=== PATIENT | male | born 1980 | race Hispanic/Latino ===

== ENCOUNTER 2023-09-17 19:28 | Emergency (ER) | payer SELFPAY ==
[2023-09-17 19:42] VITALS: BP 119/84
[2023-09-17 20:21] LABS: % Basophils 0.3 % (0-2); % Immature Granulocytes 0.2 % (0-0.5); % Lymphocytes 45.6 % (20.5-51.1); % Monocytes 5.1 % (1.7-9.3); % Neutrophils 46.8 % (42.2-75.2); Absolute Eosinophils 0.1 10^3/uL (0-0.7); Absolute Lymphocytes 2.9 10^3/uL (1.2-3.4); Absolute Monocytes 0.3 10^3/uL (0.1-0.6); Hemoglobin 14.4 g/dL (13.0-18.0); Mean Corp Hgb Conc. 35.1 g/dL (33.0-37.0); Mean Corpuscular Volume 85.4 fL (80.0-94.0); Mean Platelet Volume 11.1 fL (7.4-10.4); Nucleated Red Blood Cells % 0 % (-); Platelet Count 205 10^3/uL (130-400); Red Cell Dist. Width 12.2 % (11.5-14.5); White Blood Cell Count 6.4 10^3/uL (4.8-10.8)
[2023-09-17 20:21] LABS: Urine Albumin Negative (Neg - Trace); Urine Bilirubin Negative (Negative); Urine Character Clear (Clear); Urine Color Yellow; Urine Glucose Negative (Negative); Urine Ketone Negative (Negative); Urine Leukocyte Negative (Negative); Urine Nitrite Negative (Negative); Urine Occult Blood Negative (Negative); Urine Specific Gravity 1.025 (<1.030); Urine Urobilinogen Negative (Neg - 1+)
[2023-09-17 20:36] LABS: ALT (SGPT) 40 U/L (0-50); AST (SGOT) 31 U/L (17-59); Albumin 4.7 g/dl (3.5-5.0); Alkaline Phosphatase 80 U/L (38-126); Blood Urea Nitrogen 16 mg/dl (9-20); Calcium 9.5 mg/dl (8.4-10.2); Carbon Dioxide 26 mmol/L (22-30); Chloride 105 mmol/L (98-107); Glucose 148 mg/dl (70-99); Potassium 3.8 mmol/L (3.5-5.1); Sodium 140 mmol/L (135-145); Total Bilirubin 0.8 mg/dl (0.2-1.3); Total Protein 7.5 g/dl (6.3-8.2); eGFR > 60.00
--- NOTE | 2023-09-17 22:28 | ED.GENMED ---
History of Present Illness
General
Chief Complaint: Male Genito-Urinary Symptoms
Source: patient
Time Seen by Provider: 09/17/23 22:05
Travel History
Have you had any contact with someone who has COVID-19?: No
Do you have any symptoms of coronavirus? Fever > 100 degrees, chills, cough, shortness of breath, sore throat, loss of taste or smell, muscle aches, or headache?: No
History of Present Illness
History of Present Illness:
43-year-old male presents to the emergency room complaining of pain in his perineum, urgency to urinate and some suprapubic pain. Patient has had the symptoms for the past several days. He was seen at the [facility] and was diagnosed with
constipation. He was instructed to increase his fiber intake and has been having bowel movements since then. However this discomfort has not gone away. He denies any fever, chills. He denies any penile discharge. Patient states he has only 1
sexual partner, his significant other. Patient cannot recall having pain like this several years ago. He was treated with an antibiotic and it got better.
Past History
Past History
ED Past Medical History: GERD
ED Past Surgical History: None
Social History
Tobacco: Non-smoker
Alcohol: None
Drug: None
Personal:
Living: with family
Employment: Employed
Family History
Family History: CAD
Phy Exam
Physical Exam
Physical Exam:
General: Awake, Alert, Oriented X3. No acute distress.
Vitals: unremarkable
Head: Atraumatic
Eyes: Pupils equal, EOMI
Throat: Airway intact, no exudates
Neck: Trachea midline
Lungs: Clear and equal b/l
Heart: Regular rate, no murmurs
Abd: Soft, mild suprapubic tenderness, No pulsatile mass
Genitalia: Normal uncircumcised genitalia, no testicular pain, I feel no fluctuance or mass to palpation in the area indicated by the patient. The area is subjectively tender but he does not seem to have any palpable or visual abnormalities.
Neuro: Cranial nerves intact, muscle strength equal bilaterally, cerebellar exam normal
Skin: Warm, dry, no rash
Extremities: pulses equal b/l, no edema
Course
Orders/Labs/Results
Orders:
Orders
09/17/23 19:53
Complete Blood Count/With Diff Urgent
Comprehensive Metabolic Panel Urgent
09/17/23 20:02
Urinalysis Reflex To Culture Urgent
Date Specimen was Collected: 09/17/23
Time Specimen was Collected: 19:48
09/17/23 22:26
Add On- LAB Urgent
Tests Added?: urine gc/chlamydia
09/17/23 22:28
CT Abd/pelvis W Iv Cont Urgent
Comment:
Reason For Exam: lower abd pain and perineal pain
Abnormal Lab Results
09/17/23
19:53
MPV 11.1 H fL
(7.4-10.4)
Glucose 148 H mg/dl
(70-99)
09/17/23 19:53
09/17/23 19:53
Vital Signs
Initial and Last Documented VS:
Initial Vital Signs
Temp Pulse Resp BP Pulse Ox
98.3 F 96 18 119/84 100
09/17/23 19:42 09/17/23 19:42 09/17/23 19:42 09/17/23 19:42 09/17/23 19:42
Last Documented Vital Signs
Temp Pulse Resp BP Pulse Ox
98.3 F 65 18 138/87 99
09/17/23 19:42 09/17/23 22:41 09/17/23 22:41 09/18/23 00:32 09/18/23 00:33
MDM/Problems Addressed
Differential Diagnosis Includes:
diverticulitis, kidney stone, prostatitis, urethritis.
MDM/Problems Addressed:
Patient presents with what is essentially perineal pain. Testicular and penile exam is normal. Urinalysis does not show evidence for infection. CBC chemistries are unremarkable aside from a mild elevation of glucose. This is not a fasting
specimen but patient advised to repeat glucose in a few weeks. CT does not show any cause for the patient's symptoms. Given the location of the pain and the urgency to urinate perhaps the patient has acute prostatitis. Will treat with an
antibiotic. Recommend follow-up with the clinic.
*Radiology
Radiology exam reviewed: radiology read reviewed
*Critical Care Note
Total Time (30-74mins, 75-104mins- exclusive of procedures): Not Applicable
ED Attending Note
-
Portions of this chart may have been created with voice recognition software.� Occasional wrong word or��sound alike� substitutions may have occurred due to the inherent limitations of voice recognition software.
Discharge Plan
Departure
Patient Disposition: Home (Routine Discharge)
Date of Disposition: 09/18/23
Time of Disposition: 00:08
Patient with high blood pressure during this ER visit?: No
Condition: Good
Discharge Problem:
Abdominal pain
Instructions: Prostatitis (DC), Abdominal Pain
Prescriptions:
New
sulfamethoxazole-trimethoprim [Bactrim DS] 800-160 mg tablet
1 tab PO BID Qty: 14 0RF
No Action
epinephrine [EpiPen] 0.3 mg/0.3 mL auto-injector
0.3 mg IM .STAT PRN (Reason: hypersensitivity reaction) Qty: 1 0RF
Referrals:
Regulo Tirado Sr., MD [Family Provider] -
Activity Restrictions/Additional Instructions:
Your blood sugar was a little high and should be rechecked by [facility] in a few weeks.
Interventions
Interventions:
*Risk Screen - Suicide Last Done: 09/17/23 19:42
*General Assessment Last Done: 09/17/23 19:42
*Neglect/Abuse Screening Last Done: 09/17/23 19:42
ED- Fall Risk Assessment Last Done: 09/17/23 22:43
*ED COVID-19 Vaccine History Last Done: 09/17/23 22:21
*Nursing Disposition Last Done: 09/18/23 00:36
ED-Male Genitourinary Assessment Last Done: 09/17/23 22:42
Discharge Date and Time
Discharge Date/Time: 09/18/23 00:36
Print Language: [place]OOK ISLAND[place]
[2023-09-17 22:32] VITALS: BMI 28.8
[2023-09-17 22:41] VITALS: BP 132/87
[2023-09-17 23:00] VITALS: BP 124/87
[2023-09-18 00:32] VITALS: BP 138/87
== END 2023-09-18 00:36 | disposition home or self-care (01) ==
LOC: EMR 19:28
PROVIDERS: EMERGENCY PHYSICIAN Emergency Medicine; FAMILY PHYSICIAN Internal Medicine Cardiovascular Disease
DX: R10.2 Pelvic and perineal pain (principal); K21.9 Gastro-esophageal reflux disease without esophagitis; K59.00 Constipation, unspecified; Z82.49 Family history of ischemic heart disease and other diseases of the circulatory system
CPT/HCPCS: 99284; 74177; 80053; 81003; 85025; 87491; 87591; Q9967

== ENCOUNTER 2024-09-01 12:37 | Emergency (ER) | payer SELFPAY ==
[2024-09-01 12:42] VITALS: BP 171/106
== END 2024-09-01 13:45 | disposition left against medical advice (07) ==
LOC: EMR 12:37
PROVIDERS: EMERGENCY PHYSICIAN Emergency Medicine
DX: R07.89 Other chest pain (principal); R45.0 Nervousness; Z53.21 Procedure and treatment not carried out due to patient leaving prior to being seen by health care provider
CPT/HCPCS: 99281; 93005

== ENCOUNTER 2025-03-20 21:11 | Emergency (ER) | payer SELFPAY ==
[2025-03-20 21:11] VITALS: BP 146/96
[2025-03-20 21:15] VITALS: BP 146/96
[2025-03-20 21:18] VITALS: BMI 27.2
[2025-03-20 21:37] LABS: Hematocrit 41.0 % (39.0-52.0); Hemoglobin 14.5 g/dL (13.0-18.0); Mean Corp Hgb Conc. 35.4 g/dL (33.0-37.0); Mean Corpuscular Volume 83.3 fL (80.0-94.0); Nucleated Red Blood Cells % 0 % (-); Platelet Count 201 10^3/uL (130-400); Red Cell Dist. Width 12.3 % (11.5-14.5)
[2025-03-20 21:57] LABS: ALT (SGPT) 33 U/L (0-50); AST (SGOT) 24 U/L (17-59); Albumin 4.8 g/dl (3.5-5.0); Alkaline Phosphatase 93 U/L (38-126); Blood Urea Nitrogen 18 mg/dl (9-20); Calcium 8.9 mg/dl (8.4-10.2); Carbon Dioxide 26 mmol/L (22-30); Chloride 103 mmol/L (98-107); Estimated Creatinine Clearance 83 ml/min; Glucose 111 mg/dl (70-99); Potassium 3.3 mmol/L (3.5-5.1); Sodium 137 mmol/L (135-145); Total Protein 8.2 g/dl (6.3-8.2); eGFR > 60.00
[2025-03-20 21:59] VITALS: BP 142/95
[2025-03-20 22:00] VITALS: BP 133/96
[2025-03-20 22:00] LABS: Troponin I < 0.012 ng/ml
[2025-03-20] MEDS: LOPRESSOR 5 MG IV (22:05)
[2025-03-20 22:28] LABS: D-Dimer < 0.27 ug/mlFEU (0.00-0.50)
--- NOTE | 2025-03-20 22:39 | ED.GENMED ---
History of Present Illness
General
Chief Complaint: Chest Pain
Source: residential treatment counselor
Exam Limitations: none
Time Seen by Provider: 03/20/25 21:36
Nursing documentation reviewed up to this point in time: agreed with
History of Present Illness
History of Present Illness:
Note:
CHIEF COMPLAINT(S)
Palpitations and chest discomfort.
HISTORY OF PRESENT ILLNESS
The patient is a 45-year-old male who presented to the emergency department with a chief complaint of palpitations and chest discomfort. The symptoms began approximately 30 minutes prior to arrival and were described as a rapid heart rate
accompanied by feelings of discomfort in the chest. The patient has a consistent, 3-day history of palpitations, especially noted after physical exertion, such as doing pushups. About 10 minutes before the onset of pain, the patient engaged in
physical exercise. The patient reports occasional consumption of caffeine, having only tea today, and denies tobacco or alcohol use. There is a family history of hypertension; both the patients mother and a brother have high blood pressure. He
recalls being informed of elevated cholesterol levels and hypertension previously but reports no current medication use.
FAMILY HISTORY
Family history of high blood pressure, affecting the mother and one sibling.
REVIEW OF SYSTEMS
- Cardiovascular: Reports palpitations and chest discomfort.
- Respiratory: Denies recent travel and also has no history of recent smoking or use of tobacco products.
- General: No recent alcohol consumption.
PHYSICAL EXAM
General: Alert, no acute distress.
Skin: Warm, dry.
Head: Normocephalic, atraumatic.
Neck: Supple, trachea midline.
Eye, ears, nose, mouth and throat: Oral mucosa moist.
Cardiovascular: Normal peripheral perfusion, No edema. Pulse noted rapid during initial assessment.
Respiratory: Respirations are non-labored.
Gastrointestinal : Abdomen nondistended
Back: Normal range of motion, Normal alignment.
Musculoskeletal: Normal ROM, normal strength.
Neurological: Alert and oriented to person, place, time, and situation, No focal neurological deficit observed.
Psychiatric: Cooperative, appropriate mood & affect.
PLAN
- Blood tests to evaluate possible causes of palpitations and check cholesterol and glucose levels.
- Chest X-ray to assess for potential cardiac or pulmonary issues.
- Monitor and manage blood pressure levels.
DIFFERENTIAL DIAGNOSIS
The differential diagnosis includes, in no particular order and is not limited to:
1. Atrial fibrillation.
2. Tachycardia possibly induced by exercise.
3. Anxiety-related palpitations.
4. Paroxysmal supraventricular tachycardia (PSVT).
5. Hyperthyroidism.
6. Premature ventricular contractions (PVCs).
7. Sleep apnea-related issues.
8. Electrolyte imbalances.
9. Alcohol withdrawal or caffeine-induced arrhythmia.
10. Myocardial infarction (despite less likely due to age and presentation, warrants rule out with further work-up).
CARE-UPDATE
03/20/25 - 22:42
The patients heart rate has improved after experiencing a period of low blood pressure. There is a suspected anxiety component contributing to the ongoing chest pain, which has persisted for three days. The initial troponin test was negative, and so
was the D-dimer test. A repeat troponin test will be conducted, and if it is negative, the patient may be discharged home.
EKG
My independent EKG interpretation is:
- Time of EKG: Not specified
- Rhythm: Sinus tachycardia
- Heart rate: 115 bpm
- WA interval: Normal
- QRS duration: Normal
- QT interval: Normal
- [place]: Normal
- ST segment: Normal
- No notable abnormalities observed
Disposition:
SUMMARY OF ENCOUNTER
The patient, a 45-year-old male, was seen in the emergency department for palpitations and chest discomfort. These symptoms began 30 minutes prior to arrival, after physical exertion. A 3-day history of palpitations was noted, and the patient
reported a recent consumption of tea without tobacco or alcohol use. Given family history and previous high cholesterol and hypertension, a thorough evaluation was conducted. The initial assessment revealed sinus tachycardia. A differential
diagnosis was considered, and initial tests for ACS and PE were negative, as indicated by normal troponin and D-Dimer levels. The decision was made to manage the case conservatively given these reassuring findings.
DISPOSITION
Discharge
ASSESSMENT
The patients presentation was most likely related to exercise-induced tachycardia with suspected anxiety component contribution.
INDEPENDENT REVIEW OF LABS AND INTERPRETATION OF TESTS
My independent review of troponin is negative.
My independent review of D-Dimer is negative.
FOLLOW-UP INSTRUCTIONS
The patient was advised to follow up with their primary care physician for ongoing monitoring and management of blood pressure and cholesterol. Return precautions were provided.
MEDICAL DECISION MAKING
-Complexity of Data Reviewed: Chronic conditions affecting care [history of hypertension, elevated cholesterol] Differential Diagnosis list includes:
1. Atrial fibrillation.
2. Tachycardia possibly induced by exercise.
3. Anxiety-related palpitations.
4. Paroxysmal supraventricular tachycardia (PSVT).
5. Hyperthyroidism.
6. Premature ventricular contractions (PVCs).
7. Sleep apnea-related issues.
8. Electrolyte imbalances.
9. Alcohol withdrawal or caffeine-induced arrhythmia.
10. Myocardial infarction (despite less likely due to age and presentation, warrants rule out with further work-up).
-Data:
Category 1:
*Tests ordered: troponin, D-Dimer.
*My independent interpretation of EKG: Sinus tachycardia, 115 bpm, with normal WA, QRS, and QT intervals; no notable abnormalities.
Category 2: None
Category 3: None
-Risk: Consideration of Admission/Observation: Escalation of care including admission/observation was considered given the complexity and risk of the patients presenting complaint, exam findings, and underlying comorbidities. However, ultimately I
feel the patient is safe for outpatient management with close follow-up. Reasoning: Work-up reassuring, does not reveal any acute life/organ threatening processes, patients symptoms well controlled upon reevaluation, reexamination is reassuring,
vitals are stable, patient agreeable with discharge, reliable for follow-up.
DIAGNOSIS
Exercise-induced tachycardia (R00.0), Suspected anxiety disorder contributing to symptoms (F41.9).
Translation Services
Preferred Language: Jordanian
Front End Java Developer service via: Video
Front End Java Developer's ID Number: [id number]
Past History
Past History
ED Past Medical History: GERD
ED Past Surgical History: None
Social History
Tobacco: Non-smoker
Alcohol: None
Drug: None
Personal:
Living: with family
Employment: Employed
Family History
Family History: CAD
Scores
Heart Score for Chest Pain Patients
STEMI patient?: No
History: Slightly or Non-Suspicious
ECG: Normal
Age: </= 45 years
Risk Factors: 1 or 2 Risk Factors
Troponin: </= Normal Limit
Heart Score for Chest Pain Patients: 1
Heart Score Risk: 2.5% MACE over next 6 weeks
Course
Orders/Labs/Results
Orders:
Orders
03/20/25 21:13
Electrocardiogram (*1) Urgent
Reason for Study: Chest Pain
Cardiac Monitoring- Treatment ONCE
EKG- Treatment ONCE
IV Insert/Care/Rem.- Treatment PRN
O2 Therapy [RESP] Urgent
Titrate/Wean O2 to maintain O2 sat greater than (%): 90
Special Instructions: Maintain sats >/=90%
Pulse Ox/spot Check [RESP] Urgent
Quantity: 1
Special Instructions: ON ROOM AIR
03/20/25 21:28
Complete Blood Count/With Diff Urgent
Comprehensive Metabolic Panel Urgent
Troponin I Urgent
03/20/25 21:49
Metoprolol [Lopressor] 5 mg IV NOW STA
03/20/25 21:58
D-Dimer Urgent
03/21/25 00:30
Troponin I Urgent
Abnormal Lab Results
03/20/25
21:28
MPV 11.0 H fL
(7.4-10.4)
Potassium 3.3 L mmol/L
(3.5-5.1)
Glucose 111 H mg/dl
(70-99)
03/20/25 21:28
03/20/25 21:28
Vital Signs
Initial and Last Documented VS:
Initial Vital Signs
Temp Pulse Resp BP Pulse Ox
98.4 F 109 20 146/96 99
03/20/25 21:11 03/20/25 21:11 03/20/25 21:11 03/20/25 21:11 03/20/25 21:11
Last Documented Vital Signs
Temp Pulse Resp BP Pulse Ox
98.3 F 89 18 113/86 97
03/20/25 22:36 03/20/25 23:00 03/20/25 23:00 03/20/25 23:00 03/20/25 23:05
*Pulse Oximetry
SaO2: 97
Oxygen Mode of Delivery: Room air
ED Attending Note
-
Portions of this chart may have been created with voice recognition software.� Occasional wrong word or��sound alike� substitutions may have occurred due to the inherent limitations of voice recognition software.
Discharge Plan
Departure
Patient with high blood pressure during this ER visit?: Yes
Condition: Good
Discharge Problem:
Chest pain, Tachycardia
Instructions: Chest Pain PCP Follow Up, BLOOD PRESSURE
Prescriptions:
No Action
epinephrine [EpiPen] 0.3 mg/0.3 mL auto-injector
0.3 mg IM .STAT PRN (Reason: hypersensitivity reaction) Qty: 1 0RF
sulfamethoxazole-trimethoprim [Bactrim DS] 800-160 mg tablet
1 tab PO BID Qty: 14 0RF
Referrals:
Regulo Romero MD [Family Provider, Family Practice] - Call in 1-3 days for appt
Interventions
Interventions:
*Risk Screen - Suicide Last Done: 03/20/25 22:04
*General Assessment Last Done: 03/20/25 21:42
*Neglect/Abuse Screening Last Done: 03/20/25 21:44
*ED COVID-19 Vaccine History Last Done: 03/20/25 21:44
*ED Influenza Vaccine History Last Done: 03/20/25 21:44
[facility] Fall Risk Assessment Tool Last Done: 03/20/25 22:03
ED- Cardiac Assessment Last Done: 03/20/25 22:01
Discharge Date and Time
Print Language: [id number]
[2025-03-20 23:00] VITALS: BP 113/86
[2025-03-21] VITALS: BP 109/84
[2025-03-21 00:55] LABS: Troponin I < 0.012 ng/ml
[2025-03-21 01:00] VITALS: BP 107/82
== END 2025-03-21 01:50 | disposition home or self-care (01) ==
LOC: EMR 21:11
PROVIDERS: EMERGENCY PHYSICIAN Emergency Medicine; FAMILY PHYSICIAN Family Medicine
DX: R07.9 Chest pain, unspecified (principal); R00.0 Tachycardia, unspecified; I10 Essential (primary) hypertension; E78.00 Pure hypercholesterolemia, unspecified; K21.9 Gastro-esophageal reflux disease without esophagitis; Z82.49 Family history of ischemic heart disease and other diseases of the circulatory system
CPT/HCPCS: 99284; 96374; 80053; 84484; 85025; 85379; 93005